=== PATIENT | female | born 1930 | race Caucasian/White ===

== ENCOUNTER 2020-07-11 09:32 | Observation (INO) | payer MEDICARE ==
[~2020-07-11] VITALS: Ht 152.4 cm; Wt 61.1 kg
[~2020-07-11 09:32] MED LIST: ADULT LOW DOSE81 MG PO; AMLODIPINE BESY10 MG PO; CHOLESTYRAMINE P4 GM PO; CLOPIDOGREL75 MG PO; COZAAR100 MG PO; HUMALOG100 UNIT/1 SUB-Q; HYDROCHLOROTH12.5 M1 PO; LANTUS100 UNITS/ SUB-Q; PEPCID20 MG PO; TRAZODONE HCL50 MG PO; TUMS ULTRA400 MG PO; VITAMIN D350 MC3 PO; ZOLOFT50 MG PO
[2020-07-11] MEDS ORDERED: NEURONTIN300 MG PO (10:20)
[2020-07-11] MEDS ORDERED: AVAPRO75 MG PO (14:49)
--- NOTE | 2020-07-11 14:57 | NUR ---
DR AWARE OF BURNING WITH URINATION - URINE SAMPLE TO LAB
--- NOTE | 2020-07-11 15:25 | NUR ---
PT IN BED RESTING - ECHO IS NOW COMPLETE - DONE AT BEDSIDE. CALL LIGHT IN REACH.
[2020-07-11] MEDS ORDERED: CRAN-MAX500 M1 PO (17:03)
[2020-07-11] MEDS ORDERED: ODORLESS GARLI300 MG PO (17:03)
--- NOTE | 2020-07-11 17:03 | NUR ---
MED REC COMPLETE
--- NOTE | 2020-07-11 17:19 | NUR ---
PT SAT UP IN BED PER HER REQUEST AND HER BS WAS 68 GAVE PT ENSURE AJ AND MEAL ARRIVED. PT IS NEURO WNL AND ENJOING MEAL WITH CALL LIGHT IN REACH AND LINE OF SIGHT OF RN STATION.
--- NOTE | 2020-07-11 18:03 | NUR ---
PATIENT SITTING UP IN BED. FRESH WATER GIVNE. VITALS AND I&O'S CHARTED. CALL LIGHT IN REACH. NO FURTHER NEEDS AT THIS TIME.
--- NOTE | 2020-07-11 19:34 | NUR ---
SHIFT REPORT FROM NURSE LA. PT REQUESTS ASSISTANCE TO THE TOILET. SBA TO TOILET TO VOID. 400ML CLEAR YELLOW URINE NOTED. PT BACK TO BED, CALL LIGHT WITHIN REACH. NO FURTHER NEEDS AT THIS TIME.
--- NOTE | 2020-07-11 20:30 | NUR ---
IN ROOM FOR ASSESSMENT, VS/I&OS. PT IS ORIENTED; NEURO CHECK WNL WITH NO WEAKNESS OR ASSYMMETRY NOTED. VSS. CBG 304 REQUIRING 7UNITS SS INSULIN. IVF INFUSING ORDERED. PT INSTRUCTED ON HOW TO USE CALL LIGHT. NO FURTHER NEEDS AT THIS TIME. CALL LIGHT WITHIN REACH.
--- NOTE | 2020-07-11 21:00 | NUR ---
V/S AND I&O'S TAKEN AND RECORDED. BLOOD GLUCOSE CHECK DONE AND PRIMARY RN NOTIFIED.
--- NOTE | 2020-07-12 02:05 | NUR ---
IN ROOM FOR 0200 VITALS. PT WAS SLEEPING SUPINE WITH SLIGHT SNORE NOTED. PT AWOKE WITH TOUCH FROM NURSING STAFF. VSS. PT DENIES NEED TO USE TOILET AT THIS TIME. CALL LIGHT WITHIN REACH.
--- NOTE | 2020-07-12 06:48 | NUR ---
MORNING ASSESSMENT COMPLETE. PT REPORTS RT ABDOMEN TENDERNESS BUT ASSESSMENT CONTINUES, PT REPORTS IT HAS FADED SO "MUST HAVE BEEN GAS". NEURO CHECK WNL. FACE IS SYMMETRICAL WITH POSSIBLY ONLY A SLIGHT EYELID DROOP ON RIGHT EYELID. STRENGTH EQUAL ON RIGHT AND LEFT EXTREMITIES. TELEMETRY HAS REMAINED SINUS SHALONDA ALL NIGHT. VSS. PT DENIES NEEDS AT THIS TIME. CALL LIGHT WITHIN REACH
--- NOTE | 2020-07-12 07:02 | NUR ---
Report from ANABELLA Thomas. Patient alert, denies needs at this time. Call light in reach, bed rails up X2.
--- NOTE | 2020-07-12 07:40 | NUR ---
REPORT RECIEVED AT THE BEDSIDE. PATIENT AWAKE AND RESTING IN BED. PATIENT REPORTS NO NEEDS AT THIS TIME. CALL LIGHT WITHIN REACH. BED RAILS UP X2.
--- NOTE | 2020-07-12 07:54 | NUR ---
ASSESSMENT COMPLETED. NEURO ASSESSMENT INTACT. NO EYE DROOPING OR LACK OF FACIAL SYMMETRY NOTED WITH FACIAL EXERCISES. PATIENT REPORTS WEAKNESS WHEN STANDING BUT DEMONSTRATES STRONG AND EQUAL STRENGTH DURING ASSESSMENT. PATIENT REPORTS PAIN 5/10, REPORTS SHE IS OKAY WITH THIS LEVEL. PAITENT DENIES ANY FURTHER NEEDS AT THIS TIME. CALL LIGHT WITHIN REACH. BED RAILS UP X2.
--- NOTE | 2020-07-12 08:21 | NUR ---
Lying in bed. Assessment completed. Neuros WNL, disoriented to date. AM medications administered by clinical nursing coordinator, this nurse in room as well.
--- NOTE | 2020-07-12 09:39 | NUR ---
PATIENT UP IN CHAIR, WORKED WITH O/T THIS MORNING. VITALS AND I&OS CHARTED. CALL LIGHT IN REACH, NO OTHER NEEDS AT THIS TIME
--- NOTE | 2020-07-12 10:21 | NUR ---
Sitting up in recliner. Denies needs at this time. Call light in reach.
--- NOTE | 2020-07-12 10:26 | NUR ---
PATIENT IS RESTING UP IN THE CHAIR AND WATCHING TELEVISION. DENIES PAIN AT THIS TIME. CALL LIGHT WITHIN REACH. WILL CONTINUE TO MONITOR.
--- NOTE | 2020-07-12 10:56 | NUR ---
PATIENT UP AND OUT OF THE ROOM, WORKING WITH THERAPY.
--- NOTE | 2020-07-12 11:08 | NUR ---
Patient returns to room from working with PT. No changes to AM assessment completed.
--- NOTE | 2020-07-12 13:36 | NUR ---
PATIENT SITTING UP IN BED, FAMILY IN ROOM. VITALS AND I&OS CHARTED. 1PA TO BR. CALL LIGHT IN REACH, NO OTHER NEEDS AST THIS TIME
--- NOTE | 2020-07-12 13:55 | NUR ---
ASSESSMENT COMPLETED. PATIENT AWAKE AND ALERT SITTING UP IN BED. DENIES ANY PAIN. DENIES ANY NEEDS AT THIS TIME. NEURO CHECKS INTACT. NO LACK OF FACIAL SYMMETRY NOTED. BED RAILS UP X2. CALL LIGHT WITHIN REACH. WILL CONTINUE TO MONITOR.
--- NOTE | 2020-07-12 14:30 | NUR ---
Spoke with pt and Shonda CALHOUN. Pt lives with spouse in a 1 bedroom home. He has dementia and she is his cg. Daughter in law is in the room. She states concern as she feels pt needs assistance. Reviewed [employer] dennis lluation to receive help in the home. [facility] has already started this process. Pt denies use of DME. Pt plans to discharge in the next 1/2 hour and denies any needs. Family will be staying and helping pt for the next few days.
--- NOTE | 2020-07-12 14:42 | NUR ---
DC instructions given to patient and [id number], Tiah. Verbalize understanding. Clarisa Jacome, RN/Case Management, also in to speak with patient and family member.
--- NOTE | 2020-07-12 23:51 | EKG ---
[facility] [address] [facility] [place], [place] [address] Signed Sinus bradycardia Otherwise normal ECG When compared with ECG of 11-FEB-2019 09:19, No significant change was found Confirmed by BENITO MANZO MD ([id number]) on 07/12/2020 11:50:56 PM Electronically Signed By: BENITO MANZO MD 07/12/20 2351 PATIENT NAME: LENPORSCHE TABITHA Electrocardiogram DATE OF : [birth year] PHYSICIAN: BENITO MANZO MD REPORT #: [id number] REPORT IS CONFIDENTIAL AND NOT TO BE RELEASED WITHOUT AUTHORIZATION
== END 2020-07-12 14:35 | disposition home or self-care (01) ==
LOC: ED 09:32 → MS 09:34
PROVIDERS: ADMIT Internal Medicine; ATTEND Internal Medicine
DX: R20.0 Anesthesia of skin (principal); R53.1 Weakness; R27.8 Other lack of coordination; I12.9 Hypertensive chronic kidney disease with stage 1 through stage 4 chronic kidney disease, or unspecified chronic kidney disease; E11.22 Type 2 diabetes mellitus with diabetic chronic kidney disease; N18.4 Chronic kidney disease, stage 4 (severe); E21.5 Disorder of parathyroid gland, unspecified; Z86.73 Personal history of transient ischemic attack (TIA), and cerebral infarction without residual deficits; Z20.822 Contact with and (suspected) exposure to COVID-19; Z88.1 Allergy status to other antibiotic agents; Z88.2 Allergy status to sulfonamides; Z88.8 Allergy status to other drugs, medicaments and biological substances; Z79.02 Long term (current) use of antithrombotics/antiplatelets; Z79.4 Long term (current) use of insulin; Z79.82 Long term (current) use of aspirin
CPT/HCPCS: 36415; 70450; 70496; 70498; 71045; 80048; 80053; 81001; 84484; 85025; 85610; 85730; 93005; 93010; 93306; 97162; 99285-25; C9803; J1815; J7030; Q9967; U0003

== ENCOUNTER 2020-10-30 14:13 | Emergency (ER) | payer MEDICARE ==
[~2020-10-30] VITALS: Ht 152.4 cm; Wt 60.8 kg
[~2020-10-30 14:13] MED LIST changes: +AVAPRO75 MG PO; +CRAN-MAX500 M1 PO; +NEURONTIN300 MG PO; +ODORLESS GARLI300 MG PO
[2020-10-30] MEDS ORDERED: LANTUS100 UNITS/ SUB-Q (14:25)
[2020-10-30] MEDS ORDERED: AMLODIPINE BESYL5 MG PO (14:26)
[2020-10-30] MEDS ORDERED: PEPCID20 MG PO (15:52)
--- NOTE | 2020-10-31 09:45 | EKG ---
[facility] [address] [facility] [place], [place] [address] Signed Normal sinus rhythm Normal ECG When compared with ECG of 11-JUL-2020 11:03, No significant change was found Confirmed by TESFAYE VERA MD ([id number]) on 10/31/2020 9:45:38 AM Electronically Signed By: TESFAYE VERA MD 10/31/20 0945 PATIENT NAME: LENPORSCHE Electrocardiogram DATE OF : [birth year] PHYSICIAN: TESFAYE VERA MD REPORT #: [id number] REPORT IS CONFIDENTIAL AND NOT TO BE RELEASED WITHOUT AUTHORIZATION
== END 2020-10-30 16:05 | disposition home or self-care (01) ==
LOC: ED 14:13
DX: K21.9 Gastro-esophageal reflux disease without esophagitis (principal); R07.89 Other chest pain; E11.22 Type 2 diabetes mellitus with diabetic chronic kidney disease; N18.4 Chronic kidney disease, stage 4 (severe); Z88.1 Allergy status to other antibiotic agents; Z88.8 Allergy status to other drugs, medicaments and biological substances; Z88.2 Allergy status to sulfonamides; Z79.899 Other long term (current) drug therapy; Z79.4 Long term (current) use of insulin
CPT/HCPCS: 71046; 80053; 83735; 84484; 85025; 93005; 93010; 99285-25

== ENCOUNTER 2021-08-26 14:54 | Emergency (ER) | payer MEDICARE ==
[~2021-08-26] VITALS: Ht 152.4 cm; Wt 63.0 kg
[~2021-08-26 14:54] MED LIST changes: +AMLODIPINE BESYL5 MG PO
[2021-08-26] MEDS ORDERED: IRBESARTAN300 MG PO (15:30)
[2021-08-26] MEDS ORDERED: TRAZODONE HCL50 MG PO (15:30)
[2021-08-26] MEDS ORDERED: HYDROCHLOROTH12.5 MG PO (15:30)
[2021-08-26] MEDS ORDERED: ONDANSETRON ODT8 MG PO (17:37)
== END 2021-08-26 18:01 | disposition home or self-care (01) ==
LOC: ED 14:54
DX: K29.00 Acute gastritis without bleeding (principal); E11.22 Type 2 diabetes mellitus with diabetic chronic kidney disease; N18.4 Chronic kidney disease, stage 4 (severe); Z88.1 Allergy status to other antibiotic agents; Z88.8 Allergy status to other drugs, medicaments and biological substances; Z88.2 Allergy status to sulfonamides; Z79.899 Other long term (current) drug therapy; Z79.4 Long term (current) use of insulin
CPT/HCPCS: 36415; 70450; 80053; 81001; 84484; 85025; 96374; 96376; 99284-25; A9270; J2405; J7040

== ENCOUNTER 2021-12-27 12:45 | Emergency (ER) | payer MEDICARE ==
[~2021-12-27] VITALS: Ht 152.4 cm; Wt 49.7 kg
[~2021-12-27 12:45] MED LIST changes: +HYDROCHLOROTH12.5 MG PO; +IRBESARTAN300 MG PO; +ONDANSETRON ODT8 MG PO
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
--- NOTE | 2021-12-29 07:00 | EKG ---
[facility] [address] [facility] [place], [place] [address] Signed Sinus rhythm with 1st degree AV block Otherwise normal ECG When compared with ECG of 30-OCT-2020 14:19, No significant change was found Confirmed by BENITO MANZO MD ([id number]) on 12/29/2021 7:00:00 AM Electronically Signed By: BENITO MANZO MD 12/29/21 0700 PATIENT NAME: PORSCHE HARRINGTON Electrocardiogram DATE OF : [birth year] PHYSICIAN: BENITO MANZO MD REPORT #: [id number] REPORT IS CONFIDENTIAL AND NOT TO BE RELEASED WITHOUT AUTHORIZATION
== END 2021-12-27 16:13 | disposition home or self-care (01) ==
LOC: ED 12:45
DX: R55 Syncope and collapse (principal); E11.22 Type 2 diabetes mellitus with diabetic chronic kidney disease; N18.4 Chronic kidney disease, stage 4 (severe); Z88.8 Allergy status to other drugs, medicaments and biological substances; Z88.1 Allergy status to other antibiotic agents; Z88.2 Allergy status to sulfonamides; Z79.899 Other long term (current) drug therapy; Z79.4 Long term (current) use of insulin
CPT/HCPCS: 36415; 70450; 80053; 84484; 85025; 93005; 93010; 99284-25

== ENCOUNTER 2022-02-06 12:09 | Inpatient (IN) | payer MEDICARE ==
[~2022-02-06] VITALS: Ht 152.4 cm; Wt 49.8 kg
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
[2022-02-06] MEDS ORDERED: LOSARTAN POTAS100 MG PO (14:56)
[2022-02-06] MEDS ORDERED: NITROFURANTOIN100 M1 PO (14:58)
[2022-02-06] MEDS ORDERED: HYDROCHLOROTH12.5 MG PO (15:12)
[2022-02-06] MEDS ORDERED: IRBESARTAN300 MG PO (15:15)
--- NOTE | 2022-02-06 16:00 | NUR ---
Pt arrives to med surg floor from ED via stretcher, able to transfer self to bed. Pt intermittently confused to event- very [place]. Pt on room air. VSS. Able to discuss medication list and hx. Lungs clear, HRR. ABD distended and firm. Pt denies pain, nausea.
--- NOTE | 2022-02-06 16:45 | NUR ---
Dr Holder to floor and new orders received
--- NOTE | 2022-02-06 17:12 | NUR ---
Extensive education done with patient about POC, orders for NGT and crawford cath placement. Pt is anxious but verbalizes understanding. Crawford placed. IVF infusing. Pt reports no pain or nausea.
--- NOTE | 2022-02-06 17:35 | NUR ---
Attempted NGT x2. Pt resisting, coughing and cannot swallow with placement, resulting in no success, charge Claritza at bedside. Pt refuses placement. Dr Holder called and new orders for ativan received. 0.5mg ativan given, patient educated about POC. IVF infusing WNL.
--- NOTE | 2022-02-06 18:20 | NUR ---
Dr Winter consult entered per Dr Holder request, Dr Winter in to see patient.
--- NOTE | 2022-02-06 18:35 | NUR ---
NGT placed. CXR to confirm. Copious amount green/yellow output into cannister with NGT placement. Pt tolerates well after dose of IV ativan.
--- NOTE | 2022-02-06 19:06 | NUR ---
IV K rider infusing. Gan emptied of 200ml dark urine. Pt resting in bed with no distress.
--- NOTE | 2022-02-06 19:46 | NUR ---
PATIENT ATTEMPTED TO GET OUT OF BED TO VOID. EDUCATED PATIENT ON LAWSON. PATIENT ASSISTED BACK TO BED. NG TUBE IN PLACE AND ON LWIS. PATIENT IS BACK IN BED RESTING. REPOSITIONED PATIENT. IV INFUSING PER ORDER. PATIENT APPEARS CONFUSED. REORIENTED PATIENT. PATIENTS BED ALARM PLACED ON FOR SAFETY.
--- NOTE | 2022-02-06 20:09 | NUR ---
checked on pt, eyes closed, ng tube patent, with greenish liquid in tubing.
--- NOTE | 2022-02-06 21:40 | NUR ---
pt eyes closed, awakens easily - ngt to lwis - draining thick brown fluid. ns at 150 fusing. ua needed - crawford clamped, pt denies needs, call light in reach.
--- NOTE | 2022-02-07 00:15 | NUR ---
pt unchanged, resting with call light. crawford draining,
--- NOTE | 2022-02-07 02:12 | NUR ---
rn in pt room for vitals, bs 112, i/o low urine out, ngt 200 ml out - pt quiet, resp even, denies needs. call light and bed alarm on.
--- NOTE | 2022-02-07 04:22 | NUR ---
pt iv beeping, bending arm - flushes good w/ ns. repositioned arm. pt denies needs, ngt draining brown liquid to canister - crawford with yellow urine draining to gravity. call light in reach.
--- NOTE | 2022-02-07 05:58 | NUR ---
ruby calixto assisted lab to draw blood, vitals wnl, i/o complete - ngt with 50 ml out, crawford draining 50 ml yellow urine - will notify of continued poor output - 50 ml in ngt. call light and bed alarm on.
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
--- NOTE | 2022-02-07 08:35 | NUR ---
PT ASSESSMENT COMPLETED. PT IS ALERT/ OX3. URINARY OUTPUT INADEQUATE. MD AWARE PER CASH TELLER. IV FLUIDS RUNNING. CALL LIGHT WITHIN REACH.
--- NOTE | 2022-02-07 08:40 | NUR ---
Spoke with pt and she states she cont. to live in her home. She does not have issues getting in or out of her home. She states she can drive, but has difficulty doing so. She states she is going out less and less. Family have all moved out of town. Son has offered for her to live with him and his . Pt does not like her DIL. Pt also states she doesn't want to leave as he spouse is in a SNF here and all her friends are here. Her emergency contact is her spouse in the SNF. I asked for her Mobile Captain phone number and she agreed to give me her daughter in [facility] number. She states I am not moving in with my son, even is she tells you. I reassured her, I just want a phone number in case we need to call some one in an emergency. Pt accidentally called her daughter while attempt- ing to get her phone number. Daughter states she has been waiting anxiously for a phone call as pt gave the phone to me. Place daughter on speaker phone and she, pt, and I discussed plan. Per daughter, step dad is on rodent exterminator medicaid at the SNF. Daughter would like pt to go in with spouseWe discussed she wouldnt qualify as she can walk, drive grocery shop, and toilet herself. Pt has a life alert. Daughter states son found pt down, when he happened to visit. I suggested they pay out of pocket for some help. Gave the daughter the name of [facility] and I will take a brochure to the pts room. Daughter is Anna .
--- NOTE | 2022-02-07 10:09 | NUR ---
ROUNDED ON PT. PT APPEARS TO BE SLEEPING COMFORTABLY. IV FLUIDS RUNNING. NG TO AT LOW INTERMITTENT SUCTION. CALL LIGHT WITHIN REACH.
--- NOTE | 2022-02-07 11:51 | NUR ---
ROUNDED ON PT. PT APPEARS TO BE SLEEPING COMFORTABLY. NG IS AT LOW INTERMITTENT SUCTION. IV FLUIDS RUNNING. PT SON (ROLANDO) CALLED AND GIVEN AN UPDATE. OK PER PT.
--- NOTE | 2022-02-07 13:11 | NUR ---
PT ASLEEP, DID NOT DISTURB. WILL FOLLOW
--- NOTE | 2022-02-07 14:27 | NUR ---
Called and spoke with Cherelle Bear at [facility], pts spouse does have terminal worker medicaid. Glory would not qualify as she cont. to be able to care for self at this time.
--- NOTE | 2022-02-07 14:56 | NUR ---
MED REC COMPLETE
--- NOTE | 2022-02-07 14:57 | NUR ---
ROUNDED ON PT. PT ASSESSMENT COMPLETED. PT IS ALERT, RESPIRATIONS EVEN AND REGULAR. NG IN PLACE TO LOW INTERMITTENT SUCTION. ABDOMEN REMAINS FIRM. URINE OUTPUT INADEQUATE. CALL LIGHT WITHNI REACH.
--- NOTE | 2022-02-07 16:50 | NUR ---
ROUNDED ON PT. PT IS ALERT, RESPIRATIONS EVEN AND REGULAR. IV FLUIDS RUNNING. NG TUBE TO LOW INTERMITTENT DRAINAGE. VISITOR AT BEDSIDE.
--- NOTE | 2022-02-07 18:16 | NUR ---
ROUNDED ON PT. PT APPEARS TO BE SLEEPING COMFORTABLY. IV FLUIDS RUNNING.
--- NOTE | 2022-02-07 19:24 | NUR ---
REPORT RECEIVED FROM DILAN. PT IS DISORIENTED TO PLACE, TIME AND SITUATION. SHE IS REMINDED NOT TO TOUCH NGT. PT IS FRIENDLY AND PLEASANT.
--- NOTE | 2022-02-07 21:45 | NUR ---
REINFORCED NGT STRIP WITH EXTRA MASTISOL. PT FOGETS WHAT THE NGT IS AND PULLS ON THE TAPE. REMINDED PT NOT TO TOUCH IT.
--- NOTE | 2022-02-08 00:23 | NUR ---
ROUNDED ON PT . SHE APPEARS TO BE SLEEPING ON COMFORTABLY ON HER BACK. CALL LIGHT IN REACH.
--- NOTE | 2022-02-08 07:30 | NUR ---
Update from Dr. Holder. He states he has spoken with both daughters about pts surgery this am. He also states pt has dementia. Will follow up with pt following surgery to determine needs.
--- NOTE | 2022-02-08 08:00 | NUR ---
Spoke with pt briefly as she is leaving for surgery. Pt. denies needs.
--- NOTE | 2022-02-08 08:51 | NUR ---
PT ASSESSMENT COMPLETED AND PRE PROCEDURE CHECK LIST COMPLETED. MEDICATIONS ADMINISTERED. PT IS ALERT, RESPIRATIONS EVEN AND REGULAR. IV FLUIDS RUNNING. IV MAGNESIUM COMPLETED. CALL LIGHT WITHIN REACH.
--- NOTE | 2022-02-08 09:08 | NUR ---
Patient left the medical floor for surgery.
--- NOTE | 2022-02-08 09:50 | EKG ---
[facility] [address] [facility] [place] [address] Signed Normal sinus rhythm Nonspecific ST abnormality Abnormal ECG When compared with ECG of 02-JAN-2022 14:21, MA interval has decreased Confirmed by TESFAYE VERA MD ([id number]) on 02/08/2022 9:50:44 AM Electronically Signed By: TESFAYE VERA MD 02/08/22 0950 PATIENT NAME: PORSCHE HARRINGTON TABITHA Electrocardiogram DATE OF : [birth year] PHYSICIAN: TESFAYE VERA MD REPORT #: [id number] REPORT IS CONFIDENTIAL AND NOT TO BE RELEASED WITHOUT AUTHORIZATION
--- NOTE | 2022-02-08 12:30 | NUR ---
NOtified by staff pts daughter Dyana is in the room. To room and spoke with daughter. She starts conversation by stating, "I can't believe you guys would send her home after surgery". I asked why she would say this, she then states her mom said she could go home with a cg. I let her know this is not how the conversation went. Pt yesterday was stating she would be going home and did not need surgery. She did not want to live with her son, but is having difficulty caring for herself. I gave her information about caregivers in the area, but let her know, Dr. Holder was going to see he and felt she would need surgery. We would need to wait and see at discharge what her needs will be. I also called [facility] to check if she qualifies for software business analyst medicaid as spouse is at [facility] on medicaid. Per [facility] she would not at that time, but might after surgery if she cannot care for herself. We then discussed SNF's and I gave her a list of SNFS and [facility], [facility] in the area. Let her know it is hard to decide on a plan at this time as pt has not returned from surgery. We discussed what qualifies a pt to go to a SNF for rehab. Family would like pt to move with one of them, but pt declines. Pt does not want to leave her home and wants to stay in [place] as spouse is in [place]. Pt states mom has a borderline personality disorder. Let her know if pt declines a SNF or [facility] I cannot make her go. Will follow up with this pt. on Friday after the holiday weekend.
--- NOTE | 2022-02-08 12:34 | NUR ---
02/08/22 1234 Kofi Hoover OPA REMOVED AT 1222 PATIENT REACHES UP TO MOUTH. PROTECTING PATIENT FROM DISLODGING NG TUBE, CENTRAL LINE, AND O2. RESPONDS TO VOICE AT 1234. CANNOT ANSWER QUESTIONS YET.
--- NOTE | 2022-02-08 13:24 | NUR ---
PT RETURNED FROM SURGERY. PT STILL SLEEPY. VS TAKEN. BLOOD DRAWN FROM IJ FOR LAB. FAMILY AT BEDSIDE. DRESSING CDI.
--- NOTE | 2022-02-08 15:26 | NUR ---
TO PT ROOM FOR POST SURGICAL VS AND ASSESSMENT. PT ORIENTATION AT BASELINE. DISORIENTED TO DATE ONLY. NG TUBE TO SUCTION. IV FLUIDS RUNNING. CALL LIGHT WITHIN REACH.
--- NOTE | 2022-02-08 16:28 | NUR ---
TPN AND LIPIDS RUNNING. VERIFIED WITH CHARGE NURSE. VS TAKEN. DRESSING CDI.
--- NOTE | 2022-02-08 17:16 | NUR ---
ROUNDED ON PT. PT VS TAKEN. SURGICAL SITE CDI. ICE PACK IN PLACE. PT IS ALERT, TALKATIVE, RESPIRATIONS EVEN AND REGULAR. NG TUBE TO SUCTION. TPN AND LIPIDS RUNNING. FAMILY AT BEDSIDE.
--- NOTE | 2022-02-08 18:45 | NUR ---
ROUNDED ON PT. PT IS ALERT, ORIENTED X3. NG TUBE TO SUCTION. TPN AND LIPIDS RUNNING. SURGICAL DRESSING CDI.
--- NOTE | 2022-02-08 19:30 | NUR ---
REPORT RECEIVED FROM DILAN KYLE. PT IS NPO, NGT PATENT. HAS TPN AND LIPIDS RUNNING. GIVEN LEMON ORAL SWABS AND BOOSTED IN BED. HOB 30 DEGREES. CALLL LIGHT IN REACH.
--- NOTE | 2022-02-08 20:30 | NUR ---
PT'S BG AT [address] VERA NOTIFIED. PT IS GIVEN 11 UNITS HUMALOG IN HER LEFT ARM PER ORDER. DR VERA TOO CHANGE INSULIN CORRECTION PARAMETERS.
--- NOTE | 2022-02-08 20:53 | NUR ---
TELEPHONE ORDER RECEIVED AND READ BACK FOR CENTRAL LINE HEPARIN PROTOCOL PER POLICY. pt HAS UNCODED ALLERGY TO QUE[place]AN, PER TELEPHARMACY OKAY TO CONTINUE WITH HEPARIN LOCK.
--- NOTE | 2022-02-08 22:38 | NUR ---
rechecked pt's bp, was lower at 160/61 map 90.
--- NOTE | 2022-02-09 00:12 | NUR ---
PT HAS HER EYES CLOSED. CPOX ON 96% O2 SAT, PULSE IS 84. APPEARS COMFORTABLE.
--- NOTE | 2022-02-09 00:46 | NUR ---
PT CALLED FOR WATER. SHE FEELS VERY THIRSTY. SHE WAS ALSO TOO WARM. REMOVED SEVERAL BLANKETS. REMINDED PT OF HER NGT AND REASON FOR NPO STATUS. SHE WAS GIVEN AN INCH OF WATER IN A CUP AND GREEN ORAL SWABS. REPOSITIONED TO A MORE UPRIGHT POSITION. PT IS MORE COMFORTABLE AND CONTENT.
--- NOTE | 2022-02-09 01:59 | NUR ---
PT'S [address] VERA WAS NOTIFIED AND ORDERED A VERIFICATION OF VENOUS BLOOD SUGAR VIA LAB DRAW. THEN FOLLOW INSULIN PROTOCOL ORDERED.
--- NOTE | 2022-02-09 02:26 | NUR ---
LAB IS IN TO DO A PERIPHERAL DRAW TO COMPARE BLOOD SUGAR RESULTS WITH GLUCOMETER.
--- NOTE | 2022-02-09 02:36 | NUR ---
LAB WAS UNABLE TO GET BLODD FROM A PERIPHERAL STICK. THIS RN RYAN FROM PT'S IJ. WASTED 5 MLS AND RYAN 2 MLS BLOOD FOR LAB TO CONFIRM A HIGH BLOOD SUGAR. AWAITING RESULTS AND WILL CORRECT BASED ON CHECK.
--- NOTE | 2022-02-09 04:30 | NUR ---
IN TO ASSIST RN WITH PT UP TO THE BSC, BACK TO BED, BOOSTED, VS TAKEN, NO FURTHER NEEDS AT THIS TIME
--- NOTE | 2022-02-09 05:18 | NUR ---
PT FELT THOUGH SHE NEEDED TO HAVE A BM. SHE WAS ASSISTED OUT OF BED TO THE BSC BY STAFF.SHE SAT ON THE BSC BUT DID NOT HAVE A BM. ASSISTED BACK TO BED. PT TOLERATED THIS WELL.
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
--- NOTE | 2022-02-09 07:38 | NUR ---
DR ROUSE WAS NOTIFIED OF THE CALLS TO DR VERA LAST NIGHT REGARDING THE PT'S HIGH BLOOD GLUCOSE LEVELS AT SCHEDULED CHECKS. DR ROUSE IS AWARE THAT DR VERA KNOWS AND IS HANDLING THAT ASPECT OF THE PT'S CARE.
--- NOTE | 2022-02-09 08:40 | NUR ---
THIS RN CALLED FR GHDP=155 AND HE SAID TO JUST GIVE TNE 12UNITS FOR NOW THAT IS ALREADY ORDERED. NO OTHER ORDERS GIVEN.
--- NOTE | 2022-02-09 09:31 | NUR ---
THIS RN IN TO SEE PATIENT. HER TO SEE HER A SHORT TIME AGO. LEDFT INGUINAL SURGICAL SITE OPEN TO AIR AND DRY AND WELL APPROXIMATED. AM MEDSS GIVEN. PATIENT'S DAUGHTER AT BEDSIDE. PATIENT DENIES PAIN AND NAUSEA. AM ASSESSMENT COMPLETE. PATIENT HAS NO OTHER NURSE CARE NEEDS AT THIS TIME. CALL LI IS IN REACH.
--- NOTE | 2022-02-09 11:30 | NUR ---
PATIENT CALLED AND IS FEELING ALONE. MOE PARK IN TO SEE PATIENT.
--- NOTE | 2022-02-09 12:42 | NUR ---
PATIENT RESTING QUIETLY IN SEMI-FOWLERS POSITION, RESPIRATIONS ARE REGULAR AND EVEN, AND CALL LIGHT IS IN REACH. PATIENT CAN BE SEEN FROM THE NURSES STATION DESK. PATIENT HAS NO NURSE CARE NEEDS AT THIS TIME.
--- NOTE | 2022-02-09 15:25 | NUR ---
THIS RN IN TO GIVE SS INSULIN AND DO AFTERNOON ASSESSMENT WHICH IS NOW COMPLETE. PATIENT DENIES PAIN AND NAUSEA. TPN STILL INFUSING. PATIENT HAD A VISITOR WHO JUST ARRIVED. CALL LIGHT IN REACH AND BED ALARM ON. PATIENT HAS NO NURSE CARE NEEDS AT THIS TIME.
--- NOTE | 2022-02-09 17:05 | NUR ---
THIS RN IN TO SEE PATIENT. NEW TPN AND FILTER UP AND RUNNING, ALONG WITH 4HR K+ RIDER, AND 1HR MG+ RIDER. IV B/P MEDICATION ALSO GIVEN. PATIENT DENIES PAIN. O2 SAT 94% ON ROOM AIR ON CONTINUOUS PULSE OX. PATIENT HAS NO OTHER CARE NEEDS AT THIS TIME. CALL LIGHT IN REACH.
--- NOTE | 2022-02-09 17:48 | NUR ---
PATIENT RESTING QUIETLY IN SEMI-FOWLERS POSITION, EYES CLOSED, RESPIRATIONS ARE REGULAR AND EVEN, AND CALL LIGHT IS IN REACH. 02 SATS=94% ON RA WITH A PULSE=62. PATIENT HAS NO CARE NEEDS AT THIS TIME.
--- NOTE | 2022-02-09 19:15 | NUR ---
SHIFT REPORT RECEIVED. PT APPEARS TO BE ASLEEP. CALL LIGHT IN REACH.
--- NOTE | 2022-02-09 21:26 | NUR ---
IV PUMP BEEPING, INFUSION COMPLETE. DISCUSSED WITH PRIMARY RN. BLOOD PRESSURE MEDICATION GIVEN (SEE MAR). pt WOKE BRIEFLY DURING MEDICATION ADMINISTRATION. NO REQUESTS AT THIS TIME. TPN INFUSING ON BROWN LUMEN, WHITE AND BLUE HEP LOCKED. CALL LIGHT WITHIN REACH.
--- NOTE | 2022-02-10 02:41 | NUR ---
[facility] 441, CALL TO DR. VERA NOTIFIED. NO NEW ORDERS. ADMINISTERED 12 UNITS HUMULIN PER SLINDING SCALE. ASSISTED PATIENT WITH REPOSITIONING IN BED. NO COMPLAINTS OF PAIN. LUNG SOUNDS DIMINISHED IN BASES, ENCOURATGED TO COUGH AND DEEP BREATH. SUCTION TO NG TUBE INTERMITTENT. TPN CONTINIOUSLY INFUSING.
--- NOTE | 2022-02-10 04:00 | NUR ---
REPOSITIONED PATIENT, APPEARS CALM AND RELAXED. TOLERATED ACTIVIEY WELL. NO OTHER NEEDS AT THIS TIME.
--- NOTE | 2022-02-10 06:00 | NUR ---
PATIENT APPEARS TO HAVE RESTED WELL THROUGHOUT NIGHT. PATIENT STATES " I JUST FEEL TIRED" NO COMPLAINTS OF PAIN. BLOOD SUGARS CONTINUE TO BE ELVATED, DR. VERA AWARE. TPN INFUSING. REPOSITIONED PATIENT TO BACK, PER PATIENT REQUEST. PATIENT HAVING A FEW ICE CHIPS. NG TO SUCTION INTERMITTENTLY, <50 ML OUT PER SHIFT. LAWSON IN PLACE, GOOD URINE OUTPUT.
--- NOTE | 2022-02-10 07:30 | NUR ---
THIS RN RECEIVED SHIFT REPORT FROM ANABELLA MA. PATIENT RESTING QUIETLY IN BED, O2 SATS=96% ON RA, RESPIRATIONS ARE REGULAR AND EVEN, AND CALL LIGHT IS IN REACH. PATIENT IS LOW FOWLERS POSTION AND TPN INFUSING AND WNL.
--- NOTE | 2022-02-10 08:49 | NUR ---
THIS RN CALLED FOR A ICRF=347. SAID TO JUST GIVE THE 12 UNITS ORDERED AND NO NEW ORDERS GIVEN.
--- NOTE | 2022-02-10 09:10 | NUR ---
THIS RN IN TO SEE PATIENT AND AM ASSESSMENT COMPLETE. PATIENT DENIED ANY PAIN. NEW ORDER TO DC NGT GIVEN AND NG DC'D BY THIS RN AND PATIENT TOLERATED THIS WELL. PATIENT ALSO STARTED ON CLEAR LIQUID DIET AND ICE WATTER AND 2 JELLO'S GIVEN. CALL LIGHT IN REACH AND PATIENT HAS NO OTHER CARE NEEDS AT THIS TIME.
--- NOTE | 2022-02-10 11:10 | NUR ---
NURSES DID VITALS AND I/O'S. NO OTHER NEEDS AT THIS TIME. CALL LIGHT WITHIN REACH.
--- NOTE | 2022-02-10 15:21 | NUR ---
THIS RN IN TO SEE PATIENT. PATIENT DENIES PAIN AND NAUSEA AND HAS BEEN TAKING PO FLUIDS IN WELL. LAWSON DRAINING QS URINE. VS STABLE. BT ACTIVE X4 AND INCISIONS OPEN TO AIR AND LOOKS GREAT. PATIENT DENIES ANY CARE NEEDS AT THIS TIME. CALL LIGHT IN REACH. ICE WATER REFILLED.
--- NOTE | 2022-02-10 15:30 | NUR ---
THIS RN IN TO SEE PATIENT. 2PA TO LIFT PATIENT UP IN BED AND REPOSTION. PATIENT HAS DRY ATTENDS ON AND NO REDNESS NOTED ON PATIENT'S COCCYX OR BUTTOCK AREA. CALL LIGHT IS IN REACH AND PATIENT DENIES ANY CARE NEEDS AT THIS TIME, EXCEPT ICE WATER REFILLED. CALL LIGHT IN REACH AND BED IN LOW POSITION.
--- NOTE | 2022-02-10 18:20 | NUR ---
PATIENT LAYING IN BED TALKING WITH VISITOR. VITALS AND I/O'S COMPLETED. LAWSON DRAINED AND DOCUMENTED. NO OTHER NEEDS AT THIS TIME CALL LIGHT WITHIN REACH.
--- NOTE | 2022-02-10 20:31 | NUR ---
FULL BODY ASSESMENT DONE. PATIENT ASKING PLAN FOR DISCHARGE, DISCUSSED WITH PATIENT POC. IV LABETALOL HELD, BP LESS THAN THE PERAMETER TO ADMINISTER. ASSISTED PATIENT WITH HS CARE. PATIENT REPOTS NO PAIN 0/10 ON PAIN SCALE. LUNG SOUNDS CLEAR. SURGICAL SITE TO LEFT INGUINAL APPEARS WNL, OPEN TO AIR. CALL LIGHT WITHIN REACH, NO OTHER NEEDS AT THIS TIME.
--- NOTE | 2022-02-11 03:00 | NUR ---
0220 INTO ROOM TO ASSESS PATIENT AND PROVIDE MEDICATION PER MAR. WHEN READJUSTING PATIENT IN BED NOTED INCREASED EDEMA TO RIGHT ARM THAT IS GREATER THAN LEFT. ASSESSED IJ, PULLING BACK TO SEE IF THERE IS GOOD BLOOD RETURN, UNABLE TO PULL BACK. FLUSHED VIGOROUSLY WITH SALINE FLUSHES, STILL NO RETURN OF BLOOD. HAD PATIENT TURN HEAD, COUGH AND SIT UP ON EDGE BED, CONTINUED TO HAVE NO BLOOD RETURN 0245 PATIENT STOOD, LINEN CHANGED. SKIN APPEARS INTACT. PLACED FOAM ALLYVN TO COCCYX PREVENTATIVE FOR PRESSURE INJURY. PATIENT TOLERATED STANDING AND THEN WAS ALSO ABLE TO USE WALKER AND TAKE STEPS FORWARD AND THEN TOWARDS HEAD OF BED. 0300 ONCE POISITIONED BACK IN BED, ATTEMPTED TO DRAW BLOOD BACK FROM BOTH LUMENS AGAIN WITH NO SUCCESS. CALL TO DR. ROUSE, NOTIFIED. NEW ORDER FOR CATHFLO.
--- NOTE | 2022-02-11 05:07 | NUR ---
TO ENSURE PLACEMENT OF CENTRAL BEFORE ADMINISTERING CATHFLOW TO X2 LUMENS, STOPPED TPN, BLOOD PULLED BACK IMMEDIATELY, THEN STARTED TPN AGAIN. ADMINISTERED CATHFLO TO OTHER TWO LINES.
--- NOTE | 2022-02-11 07:30 | NUR ---
THIS RN RECEIVED SHIFT REPORT FROM ANABELLA MA. PATIENT AWAKE AND ALERT. PATIENT DENIES PAIN AND NAUSEA AT THIS TIME. PATIENT DENIES ANY CARE NEEDS AT THIS TIME. CALL LIGHT IS IN REACH.
--- NOTE | 2022-02-11 08:20 | NUR ---
PATIENT NEEDED A Q6 BLOOD SUGAR CHECK, THE RESULT WAS CHARTED AND VERBALLY GIVEN TO RN, PATIENT WAS ALSO SEEN BY DOCTOR, PATIENT WILL SHOWER AFTER BREAKFAST, PATIENT NEEDED NO OTHER ASSISTANCE, CALL LIGHT AND PHONE WITHIN REACH
--- NOTE | 2022-02-11 09:08 | NUR ---
THIS RN IN TO SEE PATIENT AM ORDERED MEDS GIVEN AND TPN DECREASED TO HALF RATE TO WEAN OFF IN 6 HOURS AND NPH INSULIN DC.
--- NOTE | 2022-02-11 10:07 | NUR ---
PATIENT LAYING IN BED, PATIENT SAID SHE DID NOT HAVE MUCH OF AN APPETITE THIS MORNING, SHE WANTED TO REST, VITAL SIGNS ARE CHARTED, PATIENT NEEDED NO OTHER ASSISTANCE AT THIS TIME, CALL LIGHT WITHIN REACH NOTHING ELSE TO REPORT!
--- NOTE | 2022-02-11 11:42 | NUR ---
PATIENTS LAWSON NEEDED TO BE D/C'D, PATIENT ALSO VOICED SHE NEEDED TO HAVE A BM, PATIENT IS ON THE BEDSIDE COMMODE PATIENT NEEDED A ONE PERSON ASSIST WITH HER WALKER, SHE MOVED SLOW BUT EFFICIANT WILL WAIT FOR THE CALL LIGHT, PHYSICAL THERAPY IS GOING TO WORK WITH PATIENT
--- NOTE | 2022-02-11 12:38 | NUR ---
THIS RN IN TO SEE PATIENT AND GIVE 1200 MED. PATIENT WANTS TO REST AND DOES NOT WANT TO EAT LUNCH. CALL LIGHT IN REACH AND BED IN LOW POSITION.
--- NOTE | 2022-02-11 14:14 | NUR ---
THIS RN IN TO SEE PATIENT. TPN NOW TURNED OF AND RIJ FLUSED WITH 20MLS NS AND HEPLOCKED. PATIENT DENIES PAIN AND NAUSEA. PATIENT'S LAWSON HAS BEEN OUT A FEW HOURS AND PATIENT IS DUE TO VOID. CALL LIGHT IS IN REACH AND ATTENDS ARE DRY. PATIENT DENIES ANY CARE NEEDS AT THIS TIME.
--- NOTE | 2022-02-11 17:40 | NUR ---
THIS RN AND VIVIAN GRADUATE NURSE IN AND PLACED A NEW DRAW SHEET, CHUX, AND ATTENDS ON PATIENT. PATIENT DUE TO VOID AND BLADDER SCAN SHOWS 273 IN THE BLADDER, BUT PATIENT DOESN'T FELL SHE NEEDS TO VOID AT THIS TIME. PATIENT'S DINNER SET UP FOR HER AND SHE IS EATING AND PO FLUIDS ENCOURAGED. CALL LIGHT IN REACH. PATIENT HAS NO OTHER CARE NEEDS AT THIS TIME.
--- NOTE | 2022-02-11 21:00 | NUR ---
PATIENT UP TO BATHROOM STBY WITH WALKER, APPEARS TO TOLERATE ACTIVITY WELL. PATIENT THEN ABLE TO LIFT LEGS INTO BED WITH MINIMAL ASSIST. AAOX3. FULL BODY ASSESMENT DONE. LUNG SOUNDS CLEAR, BOWEL TONES ACTIVE. EDEMA IN UPPER ARMS APPEARS IMPROVED DIANNA. PATIENT ENCOURAGED TO CONTINUE TO USE IS, AND DRINK PLENTY OF WATER. HS MEDICAITONS ADMINISTERED. PATIENT STATES " I AM LOOKING FORWARD TO GETTING A GOOD NIGHTS REST. SURGICAL INSCUISON AT THE INGUINAL SITE IS INTACT, NO S/S OF INFECTION. EDGES WELL APPROXIMATED AND APPEARS TO BE HEALING WELL WITH ULISES.
--- NOTE | 2022-02-12 07:30 | NUR ---
THIS RN GIVEN SHIFT REPORT FROM ANABELLA MA. PATIENT RESTING QUIETLY IN BED IN LOW FOWLERS POSITION, EYES CLOSED, RESPIRATIONS ARE REGULAR AND EVEN, CALL LIGHT IS IN REACH, AND BED ALARM IS ON. PATIENT HAS NO NURSE CARE NEEDS AT THIS TIME.
--- NOTE | 2022-02-12 10:32 | NUR ---
THIS RN IN TO SEE PATIENT. PATIENT DENIES PAIN AND NAUSEA. AM ASSESSMENT COMPLETE. VS STABLE. PATIENT ONLY ATE ABOUT 50% OF BREAKFAST. PATIENT DENIES ANY NURSE CARE NEEDS AT THIS TIME. AMMEDS GIVEN. CALL LIGHT IN REACH AND BED IN LOW POSITION WITH BED ALARM ON.
--- NOTE | 2022-02-12 10:52 | NUR ---
TPN IS NOW OFF. 60 GM CONS CARB DIET IN PLACE. AWAITING PLACEMENT.
--- NOTE | 2022-02-12 11:36 | NUR ---
THIS RN IN TO CHECK ON PATIENT ANS SHE IS RESTING QUIETLY IN BED IN LOW FOWLERS POSITION, RESPIRATIONS ARE REGULAR AND EVEN, AND CALL LIGHT IS IN REACH. PATIENT HAS NO NURSE CARE NEEDS AT THIS TIME.
--- NOTE | 2022-02-12 12:02 | NUR ---
THIS RN IN TO GIVE SCHEDULED MEDS INCLUDING 1 UNIT SS INSULIN. PATIENT DENIES ANY CARE NEEDS. WATER GLASS REFILLED. CALL LIGHT IN REACH AND BED ALARM IS ON.PATIENT AWAITING LUNCH.
--- NOTE | 2022-02-12 14:00 | NUR ---
In and spoke with Glory. She cont. to have issues with her memory and cont. to state she wants to go home. Family have called and want pt to go to SNF. I offered her placement with her spouse at [facility] as I have sent her chart. Initially she states no, but then state she will leave it up to the Dr. I will speak with Dr. Holder tomorrow.
--- NOTE | 2022-02-12 15:50 | NUR ---
THIS RN IN WITH PATIENT. AFTERNOON ASSESSMENT COMPLETE. PATIENT DENIES PAIN OR NAUSEA AND DENIES ANY OTHER CARE NEEDS AT THIS TIME. CALL LIGHT IS IN REACH AND BED ALARM IS ON. PT HAS JUST ARRIVED TO WORK WITH THE PATIENT.
--- NOTE | 2022-02-12 17:45 | NUR ---
PATIENT RESTING QUIETLY IN HER BEDSIED ARM CHAIR WITH CHAIR ALARM ON TALKING ON HER PHONE. CALL LIGHT IN REACH AND PATIENT DENIES ANY CARE NEEDS AT THIS TIME.
--- NOTE | 2022-02-12 19:25 | NUR ---
SHIFT REPORT RECEIVED FROM DAYSHIFT ANABELLA MCCRARY AT BEDSIDE. pt AWAKE AND RESTING IN CHAIR, ON RA AND RR EVEN AND UNLABORED. NO DISTRESS NOTED. pt WISHES TO GO TO BED, DAYSHIFT RN TO ASSIST.
--- NOTE | 2022-02-12 22:45 | NUR ---
assessment complete, scheduled meds given by eladio marie, this rn remianed in room and assisted as needed. pt awake and resting in bed, central line wnl, brisk blood return to all lumens, saline flushed and hep locked per policy. alcohol caps in place. vss, pt on ra. call light in reach. abd incision wnl, cota.
--- NOTE | 2022-02-13 06:23 | NUR ---
ASSESSMENT COMPLETE, pt DENEIS NAUSEA AND PAIN. A/O TO SELF, PLACE, AND SURROUNDINGS AT THIS TIME. pt AWAKE AND RESTING IN BED, BED ALARM ON AND CALL LIGHT IN REACH. VSS.
--- NOTE | 2022-02-13 06:35 | NUR ---
[facility] DOWNTIME [id number], SEE PAPER CHARTING.
--- NOTE | 2022-02-13 06:46 | NUR ---
am lab draw completed via white lumen, brisk blood draw compelte. lumen flushed and saline locked per policy, alcohol cap in place. call light in reach. pt refuse to wear scd's at this time.
--- NOTE | 2022-02-13 07:55 | NUR ---
THIS RN AGREES WITH THE CHARTING MADE BY MARYAN OJEDA THIS SHIFT.
--- NOTE | 2022-02-13 08:53 | NUR ---
PT ASSESSMENT AND MEDICATION ADMINISTRATION COMPLETED. PT IS ALERT, RESPIRATIONS EVEN AND REGULAR. CALL LIGHT WITHIN REACH.
--- NOTE | 2022-02-13 09:44 | NUR ---
PT FINISHED BREAKFAST THEN NEEDED ASSISTANCE TO THE RESTROOM. STBY W/FWW. PT STEADY ON FEET. PT PERFORMED OWN FIDENCIO CARE, ORAL CARE AND HAND HYGEINE, FACE WASH. THIS CNA2 CHANGED HER BED/CHAIR LINENS. PT AMBULATED BACK TO BED W/ST FWW. VITALS WERE TAKEN/DOCUMENTED ALONG W/I&O'S. PT RESTING IN BED, CALL LIGHT IN REACH.
--- NOTE | 2022-02-13 10:53 | NUR ---
ROUNDED ON PT. PT APPEARS TO BE SLEEPING COMFORTABLY. RESPIRATIONS EVEN AND REGULAR. CALL LIGHT WITHIN REACH.
--- NOTE | 2022-02-13 11:19 | NUR ---
covid swab collected sent to the lab
--- NOTE | 2022-02-13 12:39 | NUR ---
IN ROOM TO GIVE MEDICATION, PT FOUND RESTING IN BED COMFORTABLY, RESPIRATIONS EVEN AND UNLABORED. LEFT PT SITTING UP IN BED AWAITING LUNCH WITH CALL LIGHT IN REACH.
--- NOTE | 2022-02-13 14:41 | NUR ---
pt ambulates from bed to bathroom using FWW with standby assist. Pt voids and stools in toilet. Pt ambulates and sits in chair. Call light in reach and bed alarm on.
--- NOTE | 2022-02-13 15:31 | NUR ---
PT ASSESSMENT COMPLETED. PT IS A/O, RESPIRATIONS CLEAR AND REGULAR. JUST COMPLETED PHYSICAL THERAPY SESSION. STATES THAT IT WENT WELL. RESPIRATIONS EVEN AND REGULAR. CALL LIGHT WITHIN REACH.
--- NOTE | 2022-02-13 16:28 | NUR ---
Received notice from [facility], they may have a bed open tomorrow. He will speak with nursing and let me know if they can accept this pt tomorrow..
--- NOTE | 2022-02-13 17:22 | NUR ---
TO PT ROOM FOR MEDICATION ADMINISTRATIONL. PT IS A/O, RESPIRATIONS EVEN AND REGULAR. DENIES NEEDS OR COMPLAINTS ATT. CALL LIGHT WITHIN REACH.
--- NOTE | 2022-02-13 19:08 | NUR ---
shift report received from dayshift ruby kuhn at bedside. pt awake and resting in bed, bed alarm on and call light in reach.
--- NOTE | 2022-02-13 22:15 | NUR ---
ASSESSMENT COMPLETE, NO ACUTE CHANGES. pt AWAKE AND RESTING IN BED, REPORTS MINIMAL 2/10 PAIN- DENIES NEED FOR PAIN MEDICATION AND DENIES NAUSEA. CENTAL LINE WNL, BRISK BLOOD RETURN NOTED TO ALL 3 LUMENS. FLUSHED WITH NORMAL SALINE AND HEP LOCKED PER POLICY, NEW ALCOHOL ORANGE CAPS IN PLACE. ABD INCISION TO LLQ WELL APPROXIMATED WITH NO S/SX OF INFECTION. CALL LIGHT IN REACH, NO ADDITIONAL NEEDS. BED ALARM ON. pt DECLINED WEARING SCD'S AT THIS TIME.
--- NOTE | 2022-02-14 00:01 | NUR ---
pt RESTING IN BED WITH EYES CLOSED, RR EVEN AND UNLABORED. NO DISTRESS NOTED. CALL LIGHT IN REACH. BED ALARM REMAINS ON FOR SAFETY.
--- NOTE | 2022-02-14 03:19 | NUR ---
pt remains resting in bed, eyes closed. pt able to reposition self in bed, sba with fww. bed alarm on for safety and call light in reach. will continue to monitor.
--- NOTE | 2022-02-14 04:57 | NUR ---
pt HAD A VERY UNEVENTFUL NIGHT, SLEPT WELL THIS SHIFT. VSS, pt REPORTED VERY MINIMAL PAIN-DENIED NEED FOR PAIN MEDICATION THIS SHIFT. TOLERATING 60G CARB DIET, INSULIN WNL- NO INSULIN SS REQUIRED. pt SBA WITH FWW, BED ALARM ON FOR SAFETY. CENTRAL LINE WNL, HEP LOCKED. ABD INCISION WNL, HARRISON AND WELL APPROXIMATED. POSSIBLE DC TODAY.
--- NOTE | 2022-02-14 05:49 | NUR ---
ASSESSMENT COMPLETE, NO ACUTE CHANGES. pt AWAKE AND RESTING IN BED. DENIES PAIN AND NAUSEA. NO CHANGE TO ABD INCISION FROM START OF SHIFT, SCD'S IN PLACE. CALL LIGHT IN REACH. WILL CONTINUE TO MONITOR. ALLEVYN REMAINS TO COCCYX, UNABLE TO VISUALIZE D/T DRESSING. NO REDDNESS BEYOND ALLEVYN DRESSING NOTED AND pt CHANGES POSITIONS IN BED INDEPENDENTLY, NOW RESTING ON RIGHT SIDE. CALL LIGHT IN REACH.
--- NOTE | 2022-02-14 06:35 | NUR ---
[facility] FROM WHITE TIPPED LINE OF TRIPLE LUMEN. BRISK BLOOD RETURN NOTED, COLLECTED AND SALINE LOCKED PER PROTOCOL. NEW CLAVE IN PLACE, ALCOHOL CAP ALSO APPLIED.
--- NOTE | 2022-02-14 06:41 | NUR ---
PER DR ROUSE, VERBAL ORDER READ BACK TO CANCEL TODAY'S AND REMAINING [facility]S.
--- NOTE | 2022-02-14 07:50 | NUR ---
REPORT RECEIVED FROM NIGHT RN - MD IN ROOM ROUNDING WITH PT.
--- NOTE | 2022-02-14 08:45 | NUR ---
WENT TO ASSESS PT. PT WAS SITTING UP IN CHAIR. DURING ASSESSMENT PT STATED NUMBNESS AROUND SURGICAL SITE. PT WAS ABLE TO AMBULATE TO THE BATHROOM WITH FRONT WHEELED WALKER WITH STAND BY ASSIST. VOIDING QS. TRIPLE LUMEN FLUSHED AND HEPRIN LOCKED. ASSESSMENT COMPLETED WNL. 100% BREAKFAST INTAKE. CALL LIGHT WITHIN REACH.
--- NOTE | 2022-02-14 11:28 | NUR ---
RN ROUNDING ON PT. PT ASLEEP IN BED. RR EVEN AND UNLABORED. CALL LIGHT WITHIN REACH.
--- NOTE | 2022-02-14 11:40 | NUR ---
Notified by BETTY at [facility], they will accept this pt tomorrow. Pt and charge nurse updated. Covid test ordered.
--- NOTE | 2022-02-14 13:28 | NUR ---
RN IN ROOM TO ADMINISTER SCHEDULED MEDICATIONS - PT RESTING IN BED WORKING ON LUNCH AND TALKING ON PHONE WITH FRIEND. DENIES FURTHER NEEDS, CALL LIGHT IN REACH.
--- NOTE | 2022-02-14 14:37 | NUR ---
PHYSICAL THERAPY IN ROOM WORKING WITH PT.
--- NOTE | 2022-02-14 15:00 | NUR ---
In and spoke with pt as I received a call from her friend, Yadira. She has a A[employer] in [place] and states they have been friends for years. She asked I speak with pt and let her know she would like her to stay in her [facility]FC when she dc from [facility]. Pt is delighted by this. Let her know, Yadira will visit her at [facility].
--- NOTE | 2022-02-14 16:00 | NUR ---
WENT TO ASSESS PATIENT. PT IN RECLINER WATCHING TV. UPON PHYSICAL ASSESSMENT BRUISE ON LEFT HIP THAT EXPANDS TO INCISION SITE NOTED. INCISION SITE PATENT. GOT PT INTO BED AND REMOVED THE CENTRAL LINE. CATHETER TIP INTACT. PRESSURE APPLIED AND DRESSED WITH GUAZE AND OCCLUSIZE DRESSING. PT EDUCATED ON PROCESS AND TOLERATED WELL. LUNG SOUNDS EVEN AND UNLABORED. POC UPDATED AND DISCUSSED WITH PT WITH CASE MANAGEMENT AT BEDSIDE. CALL LIGHT WITHIN REACH. PT HAS NO COMPLAINTS AT THIS TIME.
--- NOTE | 2022-02-14 17:01 | NUR ---
COVID SWAB COLLECTED SENT TO THE LAB
--- NOTE | 2022-02-14 18:59 | NUR ---
RN ROUNDING ON PT. PT LAYING IN BED WATCHING TV. PT UP TO THE BATHROOM AT THIS TIME WITH STAND BY ASSIST. CALL LIGHT IN REACH. DENIES FURTHER NEEDS
--- NOTE | 2022-02-14 19:42 | NUR ---
RECEIVED REPORT FROM CRISTIAN KYLE. PT IS RESTING IN BED COMFORTABLE WITH NO FURTHER NEEDS AT THIS TIME. BED ALARM IS SET, CALL LIGHT IS WITHIN REACH. WILL CONTINUE TO MONITOR.
--- NOTE | 2022-02-14 20:03 | NUR ---
RECEIVED REPORT FROM SID KYLE. PT IS RESTING IN BED COMFORTABLE WITH NO FURTHER NEEDS AT THIS TIME. BED ALARM IS SET, CALL LIGHT IS WITHIN REACH. WILL CONTINUE TO MONITOR.
--- NOTE | 2022-02-14 20:08 | NUR ---
SPOKE TO DR. ROUSE REGARDING IV ACCESS FOR PT DUE TO EARLIER REMOVAL OF CENTRAL LINE IJ. PER MD, NO IV ACCESS IS REQUIRED.
--- NOTE | 2022-02-14 20:33 | NUR ---
PERFORMED ASSESSMENT. PT IS A&O TO ALL BUT TIME. PT REPORTS NO PAIN OR NAUSEA JUST SLIGHT TENDERNESS AT INCISION SITE. INCISION APPEARS SLIGHTLY RED BUT WELL APPROXIMATED WITH NO SIGNS OF INFECTION. BOWEL SOUNDS ACTIVE IN ALL 4 QUADRANTS WITH BM REPORTED TODAY. LUNGS ARE CLEAR THROUGHOUT AND PULSES FELT IN ALL EXTREMETIES. VITAL SIGNS WNL. PT REPORTS NO FURTHER NEEDS AT THIS TIME. CALL LIGHT IS WITHIN REACH, BED ALARM SET. WILL CONTINUE TO MONITOR.
--- NOTE | 2022-02-14 21:00 | NUR ---
PT UP TO BATHROOM, FWW, INDEPENDENTLY, SLOW AMBULATION. VOIDED, STATES IT TAKES TIME TO GO. ONCE DONE, THIS RN COMBED HAIR, PT THANKED THIS RN! BACK TO BED, BED ALARM PLACED, LIGHTS OUT. CALL LIGHT WITHIN REACH.
--- NOTE | 2022-02-15 00:30 | NUR ---
PT IS SLEEPING IN BED. BED ALARM IS ON, CALL LIGHT IS WITHIN REACH. WILL CONTINUE TO MONITOR.
--- NOTE | 2022-02-15 03:19 | NUR ---
Pt lemon grower light, up to bathroom to void with 1 person assist and fww. pt voided 300mL in hat, unknown quantity missed the hat. Patient returned to bed with walker and RN assist. Pt discussing going to [facility] today and said she is excited to see her as she hasn't seen him in 2 weeks. Pt was alert, conversant, and pleasant, earlier expressed gratitude for her care at the hospital.
--- NOTE | 2022-02-15 05:35 | NUR ---
ASSESSMENT PERFORMED. PT HAS BEEN SLEEPING THROUGHOUT THE NIGHT AND HAS AN UNMEASURABLE VOID, WELL 300 ML OUTPUT, NO INPUT. PT REMAINS ON TANDBY ASSIST W/FWW. PT REPORTS NO PAIN OR NAUSEA. INCISION HAS SMALL AMOUNTS OF REDNESS BUT HAS NO SIGNS OF INFECTION AND IS WELL APPROXIMATED. BOWEL SOUNDS ARE ACTIVE X4. BRUISE LOCATED ON LEFT HIP/SIDE OF PT THAT IS IN STAGES OF HEALING AND PT STATES NO PAIN. DIASTOLIC BP IS SOFT BUT ALL OTHER VITALS WNL. PT IS A&O X 3 (NOT TO TIME). NO DIZZINESS, TINGLING, OR NUMBNESS PER PT. PT IS BACK TO SLEEP IN BED WITH BED ALARM ON, CALL LIGHT WITHIN REACH, AND NO FURTHER NEEDS AT THIS TIME.
--- NOTE | 2022-02-15 05:39 | NUR ---
NIGHT WAS UNEVENTFUL. PT SLEPT THROUGH THE NIGHT WITH ONE ASSISTANCE OF AMBULATION TO THE BATHROOM WHERE 300 ML WAS RECORDED, ALONG WITH ONE UNMEASUREABLE. PT DID NOT INTAKE ANY FLUIDS. VITAL SIGNS ARE WNL, BP IS SOFT DIASTOLIC. PT REPORTS NO NEW SIGNS OR SYMPTOMS. WOUND APPEARS WELL APPROXIMATED AND NO SIGNS OF INFECTION. BRUISE NOTED ON LEFT HIP BUT APPEARS IN HEALING STAGES AND PT NOTES NO PAIN PRESENT. NO PRN MEDICATIONS ADMINISTERED ON SHIFT.
--- NOTE | 2022-02-15 06:46 | NUR ---
THIS RN REVIEWED AND AGREES WITH DENTAL APPLIANCE MECHANICSHA OJEDA'S CHARTING W/ NOTES, VS/I&O'S, AND SHIFT ASSESSMENTS.
--- NOTE | 2022-02-15 07:50 | NUR ---
RECIEVED HANDOFF REPORT. POC REVIEWED.
--- NOTE | 2022-02-15 08:22 | NUR ---
IN ROOM TO ASSESS PT. PT ASLEEP IN BED. VITALS TAKEN AND WNL. LUNG SOUNDS EVEN AND UNLABORED. INCISION ASSESSED NO NEW CHANGES. BRUISING ALONG LEFT HIP ALSO ASSESSED WITH NO PT COMPLAINT OF PAIN. PT WALKED TO THE BATHROOM 1 PERSON STAND BY ASSIST. NOW IN RECLINER WITH CALL LIGHT IN REACH. POC REVIEWED WITH PATIENT ON DISCHARGE TO [facility].
[2022-02-15] MEDS ORDERED: PAXLOVID 150-11 EACH PO (08:30)
--- NOTE | 2022-02-15 08:43 | NUR ---
PATIENT IN BED. BLOOD SUGAR COMPLETED. CALL LIGHT WITHIN REACH.
--- NOTE | 2022-02-15 09:50 | NUR ---
Called and changed dc time with the [facility] as orders are not complete at this time. Contacted Dr. Holder and he is in an emergency surgery and will complete when he is finished.
--- NOTE | 2022-02-15 10:30 | NUR ---
Completed orders, PASRR, face sheet,Covid test faxed to BETTY at [facility].
--- NOTE | 2022-02-15 11:10 | NUR ---
RN PT ROUNDING. PT SITTING IN RECLINER WAITING FOR DISCHARGE. CALL LIGHT WITHIN REACH.
--- NOTE | 2022-02-15 12:30 | NUR ---
RN PT ROUNDING. PT SITTING IN RECLINER WATCHING TV. CALL LIGHT WITHIN REACH.
--- NOTE | 2022-02-16 08:15 | DS ---
[facility] [address], [place] [address] Signed ADMISSION DATE: 02/06/2022 DISCHARGE DATE: 02/15/2022 FINAL DIAGNOSES: 1. Incarcerated left femoral hernia with small bowel obstruction. 2. Acute on chronic malnutrition. PROCEDURES: 1. Infrainguinal Bassini left femoral inguinal hernia repair. 2. Physician directed ultrasound. 3. Placement of right IJ triple lumen catheter. HISTORY OF PRESENT ILLNESS: Porsche is an 89-year-old moderately demented female, who came to our emergency room with weakness and generalized abdominal pain. It has been at least a few days since she has had anything to eat or drink. Her white count was normal. She had an incarcerated left inguinal mass. CT scan confirmed an incarcerated left femoral hernia resulting in a small bowel obstruction. I was therefore asked to admit her as a general surgeon on-call. She clearly had worsening of her chronic renal failure. HOSPITAL COURSE: Porsche was admitted as above and started on conservative treatment with NG tube, IV fluids. I consult our Internal Medicine Service as well. She improved and therefore on 02/08/2022, we took her for surgery. We performed an infrainguinal cine left femoral hernia repair as well as placement of a right IJ triple lumen catheter was positioned with directed ultrasound. She did well both intraop and postop. She has six children, now all estranged from her. It has taken us most of the week to find somewhere to place her and convince her that she needs help with her moderate dementia. Her happens to be at one of our local extended care facilities. Arrangements have been made and she will go there. In the meantime, she is much improved. Abdominal exam is completely benign. She is eating well and having good bowel movements. Her incision is healing nicely without any local signs or symptoms of infection. DISCHARGE PLANS AND MEDICATIONS: Porsche is going to be discharged to [facility] here in [place], [place]. She will continue her usual diet and medications. She is allowed to shower and bathe and ambulate and walk up and down stairs. She should not lift over about 10 pounds. She will leave the incision open to air. She has not used any narcotic pain medication this whole week. She is welcome to use Tylenol as needed for pain. She should probably stay away from NSAIDs because of her renal failure. I will see her back in my office in about Electronically Signed By: REGI ROUSE MD 02/16/22 0815 PATIENT NAME: PORSCHE HARRINGTON DISCHARGE SUMMARY DATE OF : [birth year] REPORT #: [id number] PHYSICIAN: REGI ROUSE MD PCP: DANUTA GIBBS MD REPORT IS CONFIDENTIAL AND NOT TO BE RELEASED WITHOUT AUTHORIZATION [facility] [address] [place] [id number] Signed 7-14 days for followup. I have reviewed this with Porsche each day and also her daughter, Daylin. They have expressed understanding and agreed with the above plan. Regi Rouse MD ALB/MODL /[id number] cc: MD Danuta Ku MD Copies: REGI ROUSE MD ~ Electronically Signed By: REGI ROUSE MD 02/16/22 0815 PATIENT NAME: PORSCHE HARRINGTON DISCHARGE SUMMARY DATE OF : [birth year] REPORT #: [id number] PHYSICIAN: REGI ROUSE MD PCP: DANUTA GIBBS MD REPORT IS CONFIDENTIAL AND NOT TO BE RELEASED WITHOUT AUTHORIZATION
== END 2022-02-15 12:58 | DRG 350 ==
LOC: ED 12:09 → MS 14:31
PROVIDERS: ADMIT Colon & Rectal Surgery; ATTEND Colon & Rectal Surgery
PROC: 0YQ80ZZ Repair Left Femoral Region, Open Approach (ICD-10-PCS; principal; 2022-02-08 09:30)
PROC: 02HV33Z Insertion of Infusion Device into Superior Vena Cava, Percutaneous Approach (ICD-10-PCS; 2022-02-08 09:30)
DX: K41.30 Unilateral femoral hernia, with obstruction, without gangrene, not specified as recurrent (principal); G93.41 Metabolic encephalopathy; N18.4 Chronic kidney disease, stage 4 (severe); E46 Unspecified protein-calorie malnutrition; N17.9 Acute kidney failure, unspecified; E11.22 Type 2 diabetes mellitus with diabetic chronic kidney disease; Z20.822 Contact with and (suspected) exposure to COVID-19; F03.90 Unspecified dementia, unspecified severity, without behavioral disturbance, psychotic disturbance, mood disturbance, and anxiety; E83.42 Hypomagnesemia; E87.6 Hypokalemia; I12.9 Hypertensive chronic kidney disease with stage 1 through stage 4 chronic kidney disease, or unspecified chronic kidney disease; E11.65 Type 2 diabetes mellitus with hyperglycemia; G89.4 Chronic pain syndrome; F39 Unspecified mood [affective] disorder; Z90.49 Acquired absence of other specified parts of digestive tract; Z88.1 Allergy status to other antibiotic agents; Z88.8 Allergy status to other drugs, medicaments and biological substances; Z79.899 Other long term (current) drug therapy
CPT/HCPCS: 36415; 71045; 74176; 80048; 80053; 80061; 81001; 82947; 83036; 83605; 83735; 84100; 84134; 85025; 85610; 85730; 87040; 87088; 87502; 93005; 93010; 93971; 97110; 97116; 97162; 97165; 97530; 97535; C1751; C9803; J0131; J0330; J1100; J1160; J1650; J1720; J1815; J1885; J2060; J2270; J2405; J2765; J2997; J3010; J3430; J3475; J3480; J7030; J7060; J7121; U0003